=== PATIENT | male | born 1950 | race African-American/Black ===

== ENCOUNTER 2017-07-23 03:34 | Inpatient (IN) | payer MEDICARE, MEDICAID ==
[~2017-07-23] VITALS: Ht 172.7 cm; Wt 82.6 kg
[~2017-07-23 03:34] MED LIST: ASPI-1159 PO; CLOP75TA16 PO; HYDR-519 PO; LISI40TA4 PO; ZOLP10TA2 PO
[2017-07-23] MEDS ORDERED: MORPHINE SULFATE 4 MG/ML CPJ (NOT FOR IM USE) IV STA (06:07)
[2017-07-23] MEDS ORDERED: ONDANSETRON HCL 4MG/2ML VIAL IV STA (06:07)
[2017-07-23] MEDS ORDERED: NITROGLYCERIN OINT 1GM/INCH UDPKT TD STA (06:07)
[2017-07-23] MEDS ORDERED: ASPIRIN 81MG TABLET PO STA (06:07)
[2017-07-23 06:34] LABS: HEMATOCRIT. 36.8 % (42.0-52.0); HEMOGLOBIN. 12.3 g/dL (14.0-18.0); MEAN CORPUSCULAR HEMOGLOBIN 25.9 pg (28.0-32.0); MEAN CORPUSCULAR VOLUME 77.8 fL (80.0-94.0); MEAN PLATELET VOLUME 7.5 fl (7.4-10.4); PLATELET 368 x1000/uL (130-400); RED BLOOD CELL COUNT 4.74 mill/uL (4.7-6.1); RED CELL DISTRIBUTION WIDTH 15.4 % (11.6-14.6)
[2017-07-23 06:39] LABS: CHLORIDE 102 mEq/L (98-107)
[2017-07-23 06:42] LABS: INR 1.1; PARTIAL THROMBOPLASTIN TIME 26.9 sec (23.4-31.0); PROTHROMBIN TIME 11.1 sec (9.4-11.6)
[2017-07-23] MEDS ORDERED: LEVOFLOXACIN 750MG PREMIX 150 ML IV ONE (07:15)
[2017-07-23 08:44] LABS: PLATELET ESTIMATE NORMAL
[2017-07-23] MEDS ORDERED: ONDANSETRON 4MG ODT PO ONE (09:45)
[2017-07-23 12:00] VITALS: BP 105/61
[2017-07-23 12:29] VITALS: BP 115/61
[2017-07-23] MEDS ORDERED: IPRATROPIUM/ALBUTEROL 0.5-3(2.5)MG/3ML NEB INH PRN (14:00)
[2017-07-23] MEDS ORDERED: ONDANSETRON HCL 4MG/2ML VIAL IV PRN (14:00)
[2017-07-23] MEDS: AMLODIPINE 10MG TABLET PO SCH (14:00)
[2017-07-23] MEDS ORDERED: DOCUSATE SODIUM 100MG CAPSULE PO PRN (14:00)
[2017-07-23] MEDS ORDERED: GUAIFENESIN 200MG/10ML SUGAR FREE UDC PO PRN (14:00)
[2017-07-23] MEDS ORDERED: CLONIDINE 0.1MG TABLET PO PRN (14:00)
[2017-07-23] MEDS ORDERED: HYDROCODONE/ACETAMINOPHEN 5/325MG TABLET PO PRN (14:00)
[2017-07-23] MEDS: CLOPIDOGREL 75MG TABLET PO SCH (14:15)
[2017-07-23] MEDS: METOPROLOL TARTRATE 25MG TABLET PO SCH ×2 (14:22→20:46)
[2017-07-23 15:16] LABS: CREATINE KINASE 84 IU/L (39-308)
[2017-07-23 15:17] LABS: CREATINE KINASE MB FRACTION < 0.5 ng/mL (0.5-3.6)
[2017-07-23] MEDS: MORPHINE SULFATE 4 MG/ML CPJ (NOT FOR IM USE) IV PRN ×2 (15:31→21:45)
[2017-07-23 16:14] VITALS: BP 172/70
[2017-07-23] MEDS: ACETAMINOPHEN 325MG TABLET PO PRN (16:15)
[2017-07-23 17:28] VITALS: BP 115/59
[2017-07-23 17:53] LABS: CLARITY URINE CLOUDY (CLEAR); COLOR URINE YELLOW (YELLOW); KETONES URINE NEGATIVE (NEGATIVE); LEUKOCYTE ESTERASE URINE 3+ (NEGATIVE); NITRITE URINE POSITIVE (NEGATIVE); OCCULT BLOOD URINE 2+ (NEGATIVE); PH URINE 5.5 (4.5-8.0); PROTEIN URINE 1+ (NEGATIVE); SPECIFIC GRAVITY URINE 1.016 (1.005-1.030)
[2017-07-23 18:04] LABS: *AMPHETAMINES SCREEN URINE NEGATIVE (NEGATIVE); *BARBITURATES SCREEN URINE NEGATIVE (NEGATIVE); *BENZODIAZEPINES SCREEN URINE NEGATIVE (NEGATIVE); *COCAINE SCREEN URINE PRESUMTIVE POSITIVE (NEGATIVE); METHADONE URINE SCREEN NEGATIVE (NEGATIVE); OPIATES URINE SCREEN PRESUMTIVE POSITIVE (NEGATIVE)
[2017-07-23 18:05] LABS: CANNABINOID URINE SCREEN NEGATIVE (NEGATIVE); PHENCYCLIDINE URINE SCREEN NEGATIVE (NEGATIVE)
[2017-07-23 20:00] VITALS: BP 99/69
[2017-07-23] MEDS: IPRATROPIUM/ALBUTEROL 0.5-3(2.5)MG/3ML NEB INH SCH (21:06)
[2017-07-23 21:40] VITALS: BP 96/66
[2017-07-24] VITALS: BP 98/54
[2017-07-24] MEDS: IPRATROPIUM/ALBUTEROL 0.5-3(2.5)MG/3ML NEB INH SCH ×2 (01:45→21:14)
[2017-07-24 02:35] LABS: CREATINE KINASE 157 IU/L (39-308)
[2017-07-24 02:36] LABS: CREATINE KINASE MB FRACTION < 0.5 ng/mL (0.5-3.6)
[2017-07-24 03:32] VITALS: BP 143/70
[2017-07-24] MEDS: MORPHINE SULFATE 4 MG/ML CPJ (NOT FOR IM USE) IV PRN ×4 (03:34→21:21)
[2017-07-24] MEDS: ACETAMINOPHEN 325MG TABLET PO PRN (04:17)
[2017-07-24 08:09] LABS: CHLORIDE 99 mEq/L (98-107)
[2017-07-24 08:17] LABS: HEMATOCRIT. 35.6 % (42.0-52.0); HEMOGLOBIN. 11.5 g/dL (14.0-18.0); MEAN CORPUSCULAR HEMOGLOBIN 25.6 pg (28.0-32.0); MEAN CORPUSCULAR VOLUME 79.4 fL (80.0-94.0); PLATELET 254 x1000/uL (130-400); RED BLOOD CELL COUNT 4.49 mill/uL (4.7-6.1); RED CELL DISTRIBUTION WIDTH 15.6 % (11.6-14.6)
[2017-07-24 08:18] LABS: LDL CHOLESTEROL 90 mg/dL (5-100)
[2017-07-24 08:19] LABS: HDL CHOLESTEROL 36 mg/dL (40-59)
[2017-07-24 08:50] VITALS: BP 102/56
[2017-07-24] MEDS: CLOPIDOGREL 75MG TABLET PO SCH (08:55)
[2017-07-24] MEDS: ASPIRIN 81MG EC TABLET PO SCH (08:56)
[2017-07-24] MEDS: METOPROLOL TARTRATE 25MG TABLET PO SCH ×2 (08:57→20:44)
[2017-07-24] MEDS: AMLODIPINE 10MG TABLET PO SCH (09:00)
[2017-07-24] MEDS ORDERED: ASPIRIN 81MG EC TABLET PO SCH (09:00)
[2017-07-24] MEDS: LISINOPRIL 40MG TABLET PO SCH (09:00)
[2017-07-24] MEDS: LEVOFLOXACIN 500MG PREMIX 100 ML IV SCH ×2 (09:02→09:05)
[2017-07-24] MEDS ORDERED: VANCOMYCIN 1500MG in DEXTROSE 5% WATER 250ML IV SCH (10:30)
[2017-07-24 12:00] VITALS: BP 93/61
[2017-07-24 16:18] VITALS: BP 103/63
[2017-07-24 16:59] LABS: PLATELET ESTIMATE NORMAL
[2017-07-24 20:00] VITALS: BP 91/56
[2017-07-24] MEDS: VANCOMYCIN 1250MG in DEXTROSE 5% WATER 250ML IV SCH (22:19)
[2017-07-24] MEDS: DIPHENHYDRAMINE 50MG/ML VIAL IV PRN (22:47)
[2017-07-25] VITALS (7 sets, daily range): BP systolic 100–120; BP diastolic 52–70
[2017-07-25] MEDS: DIPHENHYDRAMINE 50MG/ML VIAL IV PRN (03:26)
[2017-07-25] MEDS: MORPHINE SULFATE 4 MG/ML CPJ (NOT FOR IM USE) IV PRN ×6 (03:27→23:44)
[2017-07-25 07:37] LABS: BASOPHILS % 0.9 % (0.0-2.0); EOSINOPHILS % 1.8 % (0.0-5.0); HEMATOCRIT. 36.4 % (42.0-52.0); MEAN CORPUSCULAR HEMOGLOBIN 25.8 pg (28.0-32.0); MEAN CORPUSCULAR VOLUME 78.3 fL (80.0-94.0); MEAN PLATELET VOLUME 8.5 fl (7.4-10.4); MONOCYTES % 11.1 % (2.0-8.0); NEUTROPHILS % 67.2 % (40.0-76.0); PLATELET 267 x1000/uL (130-400); RED BLOOD CELL COUNT 4.64 mill/uL (4.7-6.1); RED CELL DISTRIBUTION WIDTH 15.7 % (11.6-14.6)
[2017-07-25 07:45] LABS: CHLORIDE 101 mEq/L (98-107)
[2017-07-25] MEDS: LISINOPRIL 40MG TABLET PO SCH (08:56)
[2017-07-25] MEDS: AMLODIPINE 10MG TABLET PO SCH (08:56)
[2017-07-25] MEDS: METOPROLOL TARTRATE 25MG TABLET PO SCH ×2 (08:57→20:44)
[2017-07-25] MEDS: ASPIRIN 81MG EC TABLET PO SCH (08:58)
[2017-07-25] MEDS: VANCOMYCIN 1250MG in DEXTROSE 5% WATER 250ML IV SCH ×2 (08:58→20:45)
[2017-07-25] MEDS: CLOPIDOGREL 75MG TABLET PO SCH (08:58)
[2017-07-25] MEDS: LEVOFLOXACIN 500MG PREMIX 100 ML IV SCH (12:53)
[2017-07-25] MEDS: IPRATROPIUM/ALBUTEROL 0.5-3(2.5)MG/3ML NEB INH SCH (20:18)
[2017-07-26] MEDS: IPRATROPIUM/ALBUTEROL 0.5-3(2.5)MG/3ML NEB INH SCH ×4 (01:31→21:07)
[2017-07-26] MEDS: MORPHINE SULFATE 4 MG/ML CPJ (NOT FOR IM USE) IV PRN ×5 (03:53→21:31)
[2017-07-26] MEDS: DIPHENHYDRAMINE 50MG/ML VIAL IV PRN ×5 (03:59→21:37)
[2017-07-26 04:00] VITALS: BP 107/62
[2017-07-26 07:39] LABS: HEMATOCRIT. 36.7 % (42.0-52.0); HEMOGLOBIN. 11.8 g/dL (14.0-18.0); MEAN CORPUSCULAR HEMOGLOBIN 25.3 pg (28.0-32.0); MEAN CORPUSCULAR VOLUME 78.5 fL (80.0-94.0); MEAN PLATELET VOLUME 8.4 fl (7.4-10.4); PLATELET 292 x1000/uL (130-400); RED BLOOD CELL COUNT 4.67 mill/uL (4.7-6.1); RED CELL DISTRIBUTION WIDTH 15.6 % (11.6-14.6)
[2017-07-26] MEDS: AMLODIPINE 10MG TABLET PO SCH (08:09)
[2017-07-26] MEDS: ASPIRIN 81MG EC TABLET PO SCH (08:09)
[2017-07-26] MEDS: LISINOPRIL 40MG TABLET PO SCH (08:10)
[2017-07-26] MEDS: VANCOMYCIN 1250MG in DEXTROSE 5% WATER 250ML IV SCH (08:10)
[2017-07-26] MEDS: CLOPIDOGREL 75MG TABLET PO SCH (08:10)
[2017-07-26] MEDS: METOPROLOL TARTRATE 25MG TABLET PO SCH ×2 (08:10→20:44)
[2017-07-26 08:42] LABS: CHLORIDE 103 mEq/L (98-107)
[2017-07-26] MEDS: LEVOFLOXACIN 500MG PREMIX 100 ML IV SCH (10:02)
[2017-07-26] MEDS ORDERED: ZOLPIDEM TARTRATE 5MG TABLET PO PRN (10:45)
[2017-07-26] MEDS: AMPICILLIN SOD/SULBACTAM NA 3 G in SODIUM CHLORIDE 0.9% 100 ML IV SCH ×2 (13:28→19:58)
[2017-07-26 20:00] VITALS: BP 95/56
[2017-07-27] VITALS: BP 112/72
[2017-07-27] MEDS: AMPICILLIN SOD/SULBACTAM NA 3 G in SODIUM CHLORIDE 0.9% 100 ML IV SCH ×4 (02:04→20:28)
[2017-07-27] MEDS: MORPHINE SULFATE 4 MG/ML CPJ (NOT FOR IM USE) IV PRN ×4 (02:06→19:58)
[2017-07-27] MEDS: IPRATROPIUM/ALBUTEROL 0.5-3(2.5)MG/3ML NEB INH SCH ×3 (02:40→21:26)
[2017-07-27 04:00] VITALS: BP 105/69
[2017-07-27] MEDS: METOPROLOL TARTRATE 25MG TABLET PO SCH ×2 (08:56→20:28)
[2017-07-27] MEDS: AMLODIPINE 10MG TABLET PO SCH (08:57)
[2017-07-27] MEDS: LISINOPRIL 40MG TABLET PO SCH (08:57)
[2017-07-27] MEDS: ASPIRIN 81MG EC TABLET PO SCH (09:04)
[2017-07-27] MEDS: CLOPIDOGREL 75MG TABLET PO SCH (09:04)
[2017-07-27] MEDS: DIPHENHYDRAMINE 50MG/ML VIAL IV PRN ×3 (10:20→22:11)
[2017-07-27 12:00] VITALS: BP 111/68
[2017-07-27 14:05] LABS: PLATELET ESTIMATE NORMAL
[2017-07-27 20:00] VITALS: BP 123/68
[2017-07-28] VITALS: BP 105/66
[2017-07-28] MEDS: MORPHINE SULFATE 4 MG/ML CPJ (NOT FOR IM USE) IV PRN ×3 (00:49→09:47)
[2017-07-28] MEDS: AMPICILLIN SOD/SULBACTAM NA 3 G in SODIUM CHLORIDE 0.9% 100 ML IV SCH ×2 (02:00→09:45)
[2017-07-28 08:00] VITALS: BP 104/65
[2017-07-28] MEDS: METOPROLOL TARTRATE 25MG TABLET PO SCH (09:00)
[2017-07-28] MEDS: LISINOPRIL 40MG TABLET PO SCH (09:00)
[2017-07-28] MEDS: AMLODIPINE 10MG TABLET PO SCH (09:45)
[2017-07-28] MEDS: CLOPIDOGREL 75MG TABLET PO SCH (09:46)
[2017-07-28] MEDS: ASPIRIN 81MG EC TABLET PO SCH (09:46)
[2017-07-28 10:57] VITALS: BP 104/65
== END 2017-07-28 12:18 | disposition home or self-care (01) | DRG 871 ==
LOC: ER 03:34 → EDBEDREQTM 07:11 → EDBEDREQ 07:11 → ENRESERV 10:00 → 8WST 10:13 → EDBEDREQ 10:17
PROVIDERS: ADMIT Hospitalist; ATTEND Hospitalist
DX: A41.9 Sepsis, unspecified organism (principal); J18.1 Lobar pneumonia, unspecified organism; I11.0 Hypertensive heart disease with heart failure; I50.9 Heart failure, unspecified; J44.0 Chronic obstructive pulmonary disease with (acute) lower respiratory infection; N39.0 Urinary tract infection, site not specified; E66.9 Obesity, unspecified; E11.9 Type 2 diabetes mellitus without complications; F17.210 Nicotine dependence, cigarettes, uncomplicated; I25.10 Atherosclerotic heart disease of native coronary artery without angina pectoris; Z95.5 Presence of coronary angioplasty implant and graft; Z79.82 Long term (current) use of aspirin; Z79.899 Other long term (current) drug therapy; Z68.27 Body mass index [BMI] 27.0-27.9, adult
CPT/HCPCS: 36415; 71045; 80048; 80053; 80061; 80202; 80305; 81003; 82550; 82553; 83605; 83690; 83735; 83880; 84443; 84484; 85025; 85610; 85730; 87040; 87077; 87086; 87186; 93005; 93970; 94640; 96374; 96375; 99291; C1893; J0295; J1200; J1956; J2270; J2405; J3370; J7040; J7050; J7060; J7620; Q0162

== ENCOUNTER 2018-06-04 00:11 | Inpatient (IN) | payer MEDICARE, MEDICAID ==
[~2018-06-04] VITALS: Ht 182.9 cm; Wt 84.8 kg
[2018-06-04] MEDS ORDERED: ASPIRIN 81MG TABLET PO ONE (01:00)
[2018-06-04 01:25] LABS: HEMATOCRIT. 40.8 % (42.0-52.0); HEMOGLOBIN. 13.4 g/dL (14.0-18.0); MEAN CORPUSCULAR HEMOGLOBIN 26.1 pg (28.0-32.0); MEAN CORPUSCULAR VOLUME 79.5 fL (80.0-94.0); MEAN PLATELET VOLUME 8.2 fl (7.4-10.4); PLATELET 226 x1000/uL (130-400); RED BLOOD CELL COUNT 5.12 mill/uL (4.7-6.1); RED CELL DISTRIBUTION WIDTH 16.6 % (11.6-14.6)
[2018-06-04 01:27] LABS: CHLORIDE 102 mEq/L (98-107)
[2018-06-04 01:30] LABS: ETHANOL BLOOD < 10 mg/dL
[2018-06-04 01:33] LABS: PARTIAL THROMBOPLASTIN TIME 24.5 sec (23.4-31.0)
[2018-06-04 01:42] LABS: CLARITY URINE TURBID (CLEAR); COLOR URINE YELLOW (YELLOW); KETONES URINE NEGATIVE (NEGATIVE); LEUKOCYTE ESTERASE URINE 3+ (NEGATIVE); NITRITE URINE NEGATIVE (NEGATIVE); OCCULT BLOOD URINE 3+ (NEGATIVE); PH URINE 5.5 (4.5-8.0); PROTEIN URINE 2+ (NEGATIVE); SPECIFIC GRAVITY URINE 1.019 (1.005-1.030); UROBILINOGEN URINE 0.2 E.U./dL (0.2-1.0)
[2018-06-04] MEDS ORDERED: SODIUM CHLORIDE 0.9% 1,000 ML IV ONE (01:46)
[2018-06-04 01:49] LABS: PLATELET ESTIMATE NORMAL
[2018-06-04 01:59] LABS: *AMPHETAMINES SCREEN URINE NEGATIVE (NEGATIVE); *BENZODIAZEPINES SCREEN URINE NEGATIVE (NEGATIVE); *COCAINE SCREEN URINE PRESUMTIVE POSITIVE (NEGATIVE); CANNABINOID URINE SCREEN NEGATIVE (NEGATIVE)
[2018-06-04 02:00] LABS: *BARBITURATES SCREEN URINE NEGATIVE (NEGATIVE); METHADONE URINE SCREEN NEGATIVE (NEGATIVE); OPIATES URINE SCREEN PRESUMTIVE POSITIVE (NEGATIVE); PHENCYCLIDINE URINE SCREEN NEGATIVE (NEGATIVE)
[2018-06-04] MEDS ORDERED: KETOROLAC 30MG/ML VIAL IV NR (02:16)
[2018-06-04] MEDS ORDERED: LORAZEPAM 2MG/ML CPJ IV NR (02:30)
[2018-06-04] MEDS ORDERED: CEFTRIAXONE 1 G PREMIX 50 ML IV NR (02:45)
[2018-06-04] MEDS ORDERED: SODIUM CHLORIDE 0.9% 1000ML BAG (SEPSIS BOLUS) IV NR (03:45)
[2018-06-04] MEDS ORDERED: IBUPROFEN 600MG TABLET PO PRN (04:30)
[2018-06-04] MEDS ORDERED: LIDOCAINE 5% PATCH TOP ONE (13:15)
[2018-06-04] MEDS ORDERED: MAGNESIUM/ALUMINUM HYDROXIDE/SIMETHICONE 30ML UDC PO PRN (14:15)
[2018-06-04] MEDS ORDERED: ACETAMINOPHEN 325MG TABLET PO PRN (14:15)
[2018-06-04] MEDS ORDERED: DOCUSATE SODIUM 100MG CAPSULE PO PRN (14:15)
[2018-06-04] MEDS ORDERED: CLONIDINE 0.1MG TABLET PO PRN (14:15)
[2018-06-04] MEDS ORDERED: CEFTRIAXONE 1 G PREMIX 50 ML IV SCH (14:30)
[2018-06-04 18:13] VITALS: BP 119/62
[2018-06-04 18:54] VITALS: BP 119/62
[2018-06-04 18:56] VITALS: BP 119/62
[2018-06-04] MEDS: TAMSULOSIN HCL 0.4MG SR CAPSULE PO SCH (19:57)
[2018-06-04] MEDS: CLOPIDOGREL 75MG TABLET PO SCH (19:57)
[2018-06-04] MEDS: ASPIRIN 81MG TABLET PO SCH (19:57)
[2018-06-04] MEDS: HYDROCODONE/ACETAMINOPHEN 5/325MG TABLET PO PRN ×2 (19:58→23:57)
[2018-06-04 20:00] VITALS: BP 105/52
[2018-06-04] MEDS: ZOLPIDEM TARTRATE 5MG TABLET PO PRN (20:22)
[2018-06-04] MEDS: SODIUM CHLORIDE 0.9% 1,000 ML IV SCH (21:48)
[2018-06-05] VITALS: BP 98/56
[2018-06-05] MEDS ORDERED: CEFTRIAXONE 1,000 MG in DEXTROSE 5% WATER 50 ML IV SCH ×2
[2018-06-05] MEDS: HYDROCODONE/ACETAMINOPHEN 5/325MG TABLET PO PRN ×3 (04:57→20:52)
[2018-06-05 06:51] LABS: CHLORIDE 103 mEq/L (98-107)
[2018-06-05 07:00] LABS: PHOSPHORUS 2.5 mg/dL (2.5-4.9)
[2018-06-05 07:03] LABS: T4 FREE 1.27 ng/dL (0.76-1.46)
[2018-06-05 07:19] LABS: HEMATOCRIT. 37.9 % (42.0-52.0); HEMOGLOBIN. 12.4 g/dL (14.0-18.0); MEAN CORPUSCULAR HEMOGLOBIN 26.2 pg (28.0-32.0); MEAN CORPUSCULAR VOLUME 79.9 fL (80.0-94.0); MEAN PLATELET VOLUME 8.2 fl (7.4-10.4); PLATELET 202 x1000/uL (130-400); RED BLOOD CELL COUNT 4.74 mill/uL (4.7-6.1); RED CELL DISTRIBUTION WIDTH 16.6 % (11.6-14.6)
[2018-06-05 08:00] VITALS: BP 101/55
[2018-06-05] MEDS ORDERED: IPRATROPIUM/ALBUTEROL 0.5-3(2.5)MG/3ML NEB HHN PRN (09:45)
[2018-06-05] MEDS: CLOPIDOGREL 75MG TABLET PO SCH (09:52)
[2018-06-05] MEDS: ASPIRIN 81MG TABLET PO SCH (09:52)
[2018-06-05] MEDS: TAMSULOSIN HCL 0.4MG SR CAPSULE PO SCH (09:52)
[2018-06-05 10:17] LABS: PLATELET ESTIMATE NORMAL
[2018-06-05 12:00] VITALS: BP 110/68
[2018-06-05] MEDS ORDERED: FLUCONAZOLE 100MG TABLET PO NR (15:00)
[2018-06-05] MEDS ORDERED: PIPERACILLIN/TAZ 3.375G PREMIX 50 ML IV SCH ×3 (15:00)
[2018-06-05] MEDS: PIPERACILLIN/TAZ 3.375G PREMIX 50 ML IV SCH ×2 (15:29→21:05)
[2018-06-05 16:00] VITALS: BP 101/56
[2018-06-05] MEDS: SODIUM CHLORIDE 0.9% 1,000 ML IV SCH (16:22)
[2018-06-05 20:22] VITALS: BP 131/72
[2018-06-05] MEDS: ZOLPIDEM TARTRATE 5MG TABLET PO PRN (21:05)
[2018-06-06] VITALS: BP 106/58
[2018-06-06] MEDS: HYDROCODONE/ACETAMINOPHEN 5/325MG TABLET PO PRN (02:47)
[2018-06-06] MEDS: PIPERACILLIN/TAZ 3.375G PREMIX 50 ML IV SCH (03:07)
[2018-06-06 04:00] VITALS: BP 99/57
[2018-06-06] MEDS ORDERED: FLUCONAZOLE 100MG TABLET PO SCH (09:00)
== END 2018-06-06 10:15 | disposition left against medical advice (07) | DRG 871 ==
LOC: ER 00:22 → 7WST 04:21 → ENRESERV 15:55
PROVIDERS: ADMIT Family Medicine Adult Medicine; ATTEND Family Medicine Adult Medicine
DX: A41.9 Sepsis, unspecified organism (principal); J96.00 Acute respiratory failure, unspecified whether with hypoxia or hypercapnia; J68.0 Bronchitis and pneumonitis due to chemicals, gases, fumes and vapors; N39.0 Urinary tract infection, site not specified; D50.9 Iron deficiency anemia, unspecified; R65.20 Severe sepsis without septic shock; F14.10 Cocaine abuse, uncomplicated; I95.9 Hypotension, unspecified; E11.9 Type 2 diabetes mellitus without complications; F17.210 Nicotine dependence, cigarettes, uncomplicated; Z53.21 Procedure and treatment not carried out due to patient leaving prior to being seen by health care provider; R07.89 Other chest pain; F19.10 Other psychoactive substance abuse, uncomplicated; N13.9 Obstructive and reflux uropathy, unspecified; I11.0 Hypertensive heart disease with heart failure; I25.10 Atherosclerotic heart disease of native coronary artery without angina pectoris; I50.9 Heart failure, unspecified; J44.9 Chronic obstructive pulmonary disease, unspecified; N40.0 Benign prostatic hyperplasia without lower urinary tract symptoms; Z82.49 Family history of ischemic heart disease and other diseases of the circulatory system; Z95.5 Presence of coronary angioplasty implant and graft; I25.2 Old myocardial infarction; Z79.82 Long term (current) use of aspirin; Z85.9 Personal history of malignant neoplasm, unspecified; Z71.6 Tobacco abuse counseling
CPT/HCPCS: 36415; 71045; 76770; 80048; 80305; 80320; 83605; 83735; 83880; 84100; 84145; 84153; 84439; 84443; 84481; 84484; 87077; 87106; 87186; 93005; 93306; 93970; 96365; 96375; 99285; J0696; J1885; J2060; J2543; J7030; J7060; G0103; G0480

== ENCOUNTER 2021-11-07 11:56 | Emergency (ER) | payer MEDICARE, MEDICAID ==
[~2021-11-07] VITALS: Ht 170.2 cm; Wt 79.0 kg
[2021-11-07] MEDS ORDERED: SODIUM CHLORIDE 0.9% 1,000 ML IV ONE (13:00)
[2021-11-07 16:08] LABS: CLARITY URINE TURBID (CLEAR); COLOR URINE YELLOW (YELLOW); KETONES URINE TRACE (NEGATIVE); LEUKOCYTE ESTERASE URINE 3+ (NEGATIVE); NITRITE URINE NEGATIVE (NEGATIVE); OCCULT BLOOD URINE 2+ (NEGATIVE); PROTEIN URINE 3+ (NEGATIVE); SPECIFIC GRAVITY URINE 1.021 (1.005-1.030)
[2021-11-07 16:24] LABS: *AMPHETAMINES SCREEN URINE PRESUMTIVE POSITIVE (NEGATIVE); *BARBITURATES SCREEN URINE NEGATIVE (NEGATIVE); *BENZODIAZEPINES SCREEN URINE NEGATIVE (NEGATIVE); *COCAINE SCREEN URINE PRESUMTIVE POSITIVE (NEGATIVE); CANNABINOID URINE SCREEN NEGATIVE (NEGATIVE); METHADONE URINE SCREEN NEGATIVE (NEGATIVE); OPIATES URINE SCREEN NEGATIVE (NEGATIVE); PHENCYCLIDINE URINE SCREEN NEGATIVE (NEGATIVE)
[2021-11-07 16:33] LABS: BASOPHILS % 1.9 % (0.0-2.0); EOSINOPHILS % 3.2 % (0.0-5.0); HEMOGLOBIN. 12.2 g/dL (14.0-18.0); MEAN CORPUSCULAR HEMOGLOBIN 25.7 pg (28.0-32.0); MEAN CORPUSCULAR VOLUME 80.4 fL (80.0-94.0); MEAN PLATELET VOLUME 7.7 fl (7.4-10.4); MONOCYTES % 8.9 % (2.0-8.0); PLATELET 305 x1000/uL (130-400); RED BLOOD CELL COUNT 4.73 mill/uL (4.7-6.1); RED CELL DISTRIBUTION WIDTH 14.8 % (11.6-14.6)
[2021-11-07 16:44] LABS: CHLORIDE 103 mEq/L (98-107)
[2021-11-07] MEDS: CEFTRIAXONE 1 G PREMIX 50 ML IV NR ×2 (16:50→17:17)
[2021-11-07 16:56] LABS: ETHANOL BLOOD < 10 mg/dL
[2021-11-07] MEDS ORDERED: LEVO500T90 MT (17:02)
[2021-11-07] MEDS ORDERED: KETOROLAC 15MG/ML VIAL IV ONE (17:30)
[2021-11-07 18:00] VITALS: BP 139/77
== END 2021-11-07 18:05 | disposition home or self-care (01) ==
LOC: ER 12:28
DX: N39.0 Urinary tract infection, site not specified (principal); F19.10 Other psychoactive substance abuse, uncomplicated; J18.9 Pneumonia, unspecified organism; F14.10 Cocaine abuse, uncomplicated; F12.10 Cannabis abuse, uncomplicated; R51.9 Headache, unspecified; I50.9 Heart failure, unspecified; Z59.00 Homelessness unspecified; Z20.822 Contact with and (suspected) exposure to COVID-19
CPT/HCPCS: 36415; 70450; 71045; 80053; 80305; 80320; 81003; 83605; 83880; 84484; 85025; 87040; 87086; 87426; 93005; 96365; 96375; 99285; J0696; J1885; J7030; G0480